=== PATIENT | male | born 1950 | race Caucasian/White ===

== ENCOUNTER 2016-08-22 20:28 | Emergency (ER) | payer BC ==
[~2016-08-22 20:28] MED LIST: ASPIR-TRIN325 MG; NO MEDICATIONS
[2016-08-22] MEDS ORDERED: ASPIRIN325 M3 PO (22:38)
[2016-08-22] MEDS ORDERED: FISH OIL 11000 MG/CA PO (22:38)
[2016-08-22] MEDS ORDERED: CENTRUM SILVER1 EAC7 PO (22:38)
== END 2016-08-23 00:47 ==
LOC: EDMED 20:28
PROC: 0HQGXZZ Repair Left Hand Skin, External Approach (ICD-10-PCS; principal; 2016-08-23)
DX: S61.412A Laceration without foreign body of left hand, initial encounter (principal); Z23 Encounter for immunization; Z88.0 Allergy status to penicillin; W01.0XXA Fall on same level from slipping, tripping and stumbling without subsequent striking against object, initial encounter; Y92.009 Unspecified place in unspecified non-institutional (private) residence as the place of occurrence of the external cause